=== PATIENT | female | born 1975 | race Caucasian/White ===

== ENCOUNTER 2023-04-26 17:19 | Emergency (ER) | payer OTHER, SELFPAY ==
[2023-04-26 17:29] VITALS: BP 153/82; PULSE 74; RESP 16; TEMP 36.6; O2SAT 97; BMI 40.7
--- NOTE | 2023-04-26 17:36 | ED_ITS ---
HPI - Back Pain/Injury General: Chief Complaint: Back Pain/Injury Stated Complaint: fell down stairs(2 Days ago) back pains Time Seen by Provider: 04/26/23 17:29 History of Present Illness: 47-year-old female comes in today for ev aluation of injuries secondary to a fall from 2 days ago. Patient reports she was walking down some steps in her house when she slipped and fell on the last 2 steps. Patient landed against her right flank. Patient reports of low back pain and right flank tenderness. Patient appears nontoxic. Patient appears in moderate pain. Patient has a history of type 2 diabetes which she takes Ozempic, and mental health disorder. Associated symptoms: Reports hematuria and nausea; Deny fever(s) Review of Systems General: Reports: 10 or more systems reviewed and unremarkable except in HPI and below Const: Denies: fever(s) Card: Denies: chest pain Resp: Denies: dyspnea GI: Reports: nausea : Reports: hematuria; Denies: difficulty voiding Musc: Reports: back pain [facility] ED Female Reproductive History: Date of last menstrual period: 04/16/23 Physical Exam Const: COMMON NORMALS: alert HENMT: COMMON NORMALS: normocephalic and atraumatic HEAD & SCALP: normocephalic and atraumatic Neck/C-Spine: CERVICAL SPINE: Yes cervical ROM normal and No Cervical spine tenderness Chest: COMMONS NORMALS: normal palpation of entire chest wall Resp: COMMON NORMALS: normal respiratory effort and clear to auscultation bilaterally AUSCULTATION: clear to auscultation bilaterally Cardio: COMMON NORMALS: regular rate and regular rhythm RATE: regular rate RHYTHM: regular rhythm GI: COMMON NORMALS: Soft to palpation and non-tender PALPATION: Yes Soft to palpation : COMMON NORMALS: Yes no CVA tenderness BLADDER/KIDNEY EXAM: Yes no CVA tenderness Back/Pelvis: COMMON NORMALS: no CVA tenderness LUMBAR SPINE/LOWER BACK: Yes lumbar spinal tenderness (Mid) and Yes paraspinal muscle tenderness OTHER: Bruising is noted to the lumbar area extending over to the right flank. Extremity: COMMON NORMALS: normal to inspection and full ROM Neuro: SENSORIUM/ORIENTATION: Yes alert Skin: COMMON NORMALS: turgor normal GENERAL SKIN EXAM: turgor normal Course Vital Signs: Vital signs: Vital Signs Temperature 97.9 F 04/26/23 17:29 Pulse Rate 74 01/22/24 17:29 Respiratory Rate 16 04/26/23 17:29 Blood Pressure 153/82 04/26/23 17:29 Pulse Oximetry 97 04/26/23 17:29 Oxygen Delivery Me thod Room Air 04/26/23 17:29 MDM - Back Pain/Injury Medical Decision Making 47-year-old female comes in today for injuries sustained during a fall while going down some steps 2 days ago. On exam patient has some tenderness of the muscles and bruising, and some vertebral tenderness around middle of the lumbar spine. Patient appears nontoxic. Differential diagnosis includes contusion, renal contusion, fracture of the vertebral body, intervertebral disc disease, f acet arthropathy, other fracture. CT scan noted a mildly displaced acute fracture of the right L2 transverse process. No other significant injuries were noted. Patient was treated with ketorolac and hydrocodone for pain with good results. Patient was recommended to use acetaminophen and ibuprofen at home for pain and a prescription for hydrocodone was used for severe pain. Recommend patient follow-up with primary care for further instructions and evaluation. Recommend return to the ER for worsening symptoms. Patient reported understanding and agreed to plan. Labs Radiology Impressions Abdomen/Pelvis CT 04/26/23 17:40 IMPRESSION: 1. Mildly displaced acute fracture of the right L2 transverse process. 2. Nonobstructing left renal stone. 3. Increased fecal content in the colon. 4. Incidental/nonacute findings are listed in the report. All radiology interpretation(s) finalized by discharge Discharge Plan Discharge Patient Disposition: Home Clinical Impression: Fracture of transverse process of lumbar vertebra Qualifiers: Encounter type: initial encounter Fracture type: open Qualified Code(s): S32.009B - Unspecified fracture of unspecified lumbar vertebra, initial encounter for open fracture Condition: Stable Prescriptions: New hydrocodone-acetaminophen 5-325 mg tablet 1 tab PO Q6H PRN (Reason: pain (scale score 7-10)) 3 Days Qty: 12 0RF Discharge Orders: Discharge ED (Routine); Ordered 04/26/23 Ordered By: Matias De Anda Discharge Diet: Usual diet Discharge Activity: Increase activity as tolerated Patient Instructions: Spinous Process Fracture (ED), Opioid Safety Activity Restrictions/Additional Instructions: Activity as tolerated. Drink plenty of water and fluids. Use acetaminophen and ibuprofen to control pain. Use hydrocodone for severe pain. Follow-up with primary care for further instructions and evaluation. Return to ED for worsening symptoms such as high fever, nausea and vomiting, or new concerns. Coding Level of Care Code ED Facility Operations Manager for [facility]
--- NOTE | 2023-04-26 17:40 | CTR_ITS ---
PROCEDURE INFORMATION: Exam: CT Abdomen And Pelvis Without Contrast Exam date and time: 04/26/2023 6:04 PM Age: 47 years old Clinical indication: Injury or trauma; Fall; Blunt; Generalized; Prior surgery; Surgery date: 6+ months; Surgery type: Kelsea; Additional info: Fall injury, low back pain, right flank TECHNIQUE: Imaging protocol: Computed tomography of the abdomen and pelvis without contrast. Sagittal and coronal reformatted images were created and reviewed. Radiation optimization: All CT scans at this facility use at least one of these dose optimization techniques: automated exposure control; mA and/or kV adjustment per patient size (includes targeted exams where dose is matched to clinical indication); or iterative reconstruction. COMPARISON: No relevant prior studies available. RADIATION DOSE METRICS: Total DLP (mGy-cm): 1051 FINDINGS: Limitations: Evaluation of solid organs and vasculature is limited without intravenous contrast. Lungs: Visualized lungs are clear. Pleural spaces: No pleural effusion. Heart: Visualized portions of the heart are unremarkable. Liver: The liver is unremarkable. Gallbladder and bile ducts: Patient has had a previous cholecystectomy. No biliary ductal dilatation. Pancreas: The pancreas is unremarkable. No pancreatic ductal dilatation. Spleen: The spleen is unremarkable. Small splenule in the left upper quadrant. Adrenal glands: The right and left adrenal glands are unremarkable. Kidneys and ureters: Multiple areas of scarring in both kidneys with mild atrophy of the left kidney. Nonobstructing stone in the left kidney measuring 2.1 mm (series 3, image 37). The right and left ureters are unremarkable. Stomach and bowel: Ingested contents in the stomach. No acute abnormality in the small bowel. Increased fecal content in the colon. Appendix: The appendix is visualized and is unremarkable. No evidence of appendicitis. Intraperitoneal space: No free intraperitoneal air. No ascites. No loculated fluid collections to suggest an abscess. Vasculature: No evidence for aortic aneurysm. Lymph nodes: No lymphadenopathy. Urinary bladder: The bladder is unremarkable for the degree of distension. Reproductive: The uterus, right ovary, and left ovary are unremarkable. Bones/joints: Mild degenerative changes in the visualized spine. Mildly displaced acute fracture of the right L2 transverse process. Soft tissues: No acute abnormality in the extra-abdominal soft tissues. CT/CT abdomen pelvis wo con [id number] IMPRESSION: 1. Mildly displaced acute fracture of the right L2 transverse process. 2. Nonobstructing left renal stone. 3. Increased fecal content in the colon. 4. Incidental/nonacute findings are listed in the report.
[2023-04-26] MEDS: ketorolac 30 mg/mL INJ IM (17:56)
[2023-04-26] MEDS: HYDROcodone-acetaminophen 7.5-325 mg Tablet 1 TAB PO (17:56)
[2023-04-26 18:46] VITALS: BP 147/83; PULSE 71; RESP 16; O2SAT 98
[2023-04-26 19:10] LABS: Add Urine Microscopic? YES; Bacteria Urine 1+ /hpf; Bilirubin Urine Neg (Negative); Blood Urine Neg (Negative); Glucose Urine UA Norm (Normal); Ketones Urine Negative (Negative); Leukocyte Esterase Urine Negative (Negative); Nitrate Urine Negative (Negative); Protein Urine Trace (Negative); RBC Urine 0-4 /hpf (0-2); Squamous Epithelial Cell Urine 0-4 /hpf (0-5); Urine Appearance SL Hazy (CLEAR); Urine Color Yellow (Yellow); Urobilinogen Urine Norm (Negative); WBC Urine 0-4 /hpf (0-5); pH Urine 5 (5-7)
[2023-04-26 19:11] LABS: Add Urine Culture? No
== END 2023-04-26 18:47 | disposition home or self-care (01) ==
PROVIDERS: Emergency Provider Nurse Practitioner Family
DX: S32.028A Other fracture of second lumbar vertebra, initial encounter for closed fracture (principal); W10.8XXA Fall (on) (from) other stairs and steps, initial encounter; E11.9 Type 2 diabetes mellitus without complications; Z79.85 Long-term (current) use of injectable non-insulin antidiabetic drugs
CPT/HCPCS: 74176; 81001; 96372; 99284; J1885